=== PATIENT | female | born 1970 | race Caucasian/White ===

== ENCOUNTER 2017-09-21 12:32 | Emergency (ER) | payer OTHER ==
[~2017-09-21] VITALS: Ht 175.3 cm; Wt 81.7 kg
[2017-09-21] MEDS ORDERED: ALPRAZOLAM1 MG PO (12:55)
[2017-09-21] MEDS ORDERED: OXYCODONE HCL10 MG PO (12:55)
[2017-09-21] MEDS ORDERED: CYCLOBENZAPRINE10 MG PO (12:55)
[2017-09-21] MEDS ORDERED: MULTIVITAMINS1 EAC7 PO (12:56)
[2017-09-21] MEDS ORDERED: GABAPENTIN300 MG PO (12:56)
[2017-09-21] MEDS ORDERED: CLARITIN10 M2 PO (12:57)
== END 2017-09-21 14:09 | disposition home or self-care (01) ==
LOC: ED 12:32
DX: G43.909 Migraine, unspecified, not intractable, without status migrainosus (principal); Z90.710 Acquired absence of both cervix and uterus; Z88.2 Allergy status to sulfonamides; Z88.6 Allergy status to analgesic agent; Z88.5 Allergy status to narcotic agent; Z88.8 Allergy status to other drugs, medicaments and biological substances; Z79.899 Other long term (current) drug therapy
CPT/HCPCS: 96361; 96374; 96375; 99282; J1200; J1885; J2405; J2765; J7030

== ENCOUNTER 2018-11-01 12:54 | Emergency (ER) | payer OTHER ==
[~2018-11-01] VITALS: Ht 175.3 cm; Wt 81.7 kg
[~2018-11-01 12:54] MED LIST: ALPRAZOLAM1 MG PO; CLARITIN10 M2 PO; CYCLOBENZAPRINE10 MG PO; GABAPENTIN300 MG PO; MULTIVITAMINS1 EAC7 PO; OXYCODONE HCL10 MG PO
[2018-11-01] MEDS ORDERED: ZOFRAN4 MG PO (14:32)
== END 2018-11-01 14:50 | disposition home or self-care (01) ==
LOC: ED 12:54
DX: G43.909 Migraine, unspecified, not intractable, without status migrainosus (principal); F17.200 Nicotine dependence, unspecified, uncomplicated; Z90.710 Acquired absence of both cervix and uterus; Z88.2 Allergy status to sulfonamides; Z88.6 Allergy status to analgesic agent; Z88.5 Allergy status to narcotic agent; Z88.8 Allergy status to other drugs, medicaments and biological substances; Z79.899 Other long term (current) drug therapy
CPT/HCPCS: 80053; 85025; 96361; 96374; 96375; 99284-25; J1200; J1885; J2765; J7030

== ENCOUNTER 2019-04-06 15:19 | Emergency (ER) | payer OTHER ==
[~2019-04-06] VITALS: Ht 175.3 cm; Wt 71.7 kg
[~2019-04-06 15:19] MED LIST changes: +ZOFRAN4 MG PO
--- OUTSIDE RECORDS SUMMARY | 2019-04-06 15:20 | XMS ---
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 Jaqui VISIT COUNT (12 MO.) 2 JOSH Pablo TOTAL 2 NOTE: Visits indicate total known visits. ED/UCC VISIT TRACKING (12 MO.) 04/06/2019 15:19 [facility] [place] TYPE: Emergency COMPLAINT: - L ARM TINGLING 11/01/2018 12:54 [facility] [place] TYPE: Emergency COMPLAINT: - HEADACHE/VOMITING DIAGNOSES: - Headache - Allergy status to other drugs, medicaments and biological substances status - Acquired absence of both cervix and uterus - Other group home (current) drug therapy - Allergy status to sulfonamides status - Nicotine dependence, unspecified, uncomplicated - Migraine, unspecified, not intractable, without status migrainosus - Allergy status to analgesic agent status - Allergy status to narcotic agent status INPATIENT VISIT TRACKING (12 MO.) No inpatient visits to display in this time frame [id number]
== END 2019-04-06 17:49 | disposition home or self-care (01) ==
LOC: ED 15:19
DX: M62.838 Other muscle spasm (principal); R20.2 Paresthesia of skin; F17.200 Nicotine dependence, unspecified, uncomplicated; Z90.710 Acquired absence of both cervix and uterus; Z88.2 Allergy status to sulfonamides; Z88.6 Allergy status to analgesic agent; Z88.5 Allergy status to narcotic agent; Z88.8 Allergy status to other drugs, medicaments and biological substances
CPT/HCPCS: 99283

== ENCOUNTER 2020-06-18 16:44 | Emergency (ER) | payer MEDICARE, OTHER ==
[~2020-06-18] VITALS: Ht 172.7 cm; Wt 68.0 kg
[~2020-06-18 16:44] MED LIST changes: +SUMATRIPTAN-NA1 EACH PO
--- OUTSIDE RECORDS SUMMARY | 2020-06-18 16:48 | XMS ---
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 E.D. VISIT COUNT (12 MO.) 2 JOSH Pablo TOTAL 2 NOTE: Visits indicate total known visits. ED/UCC VISIT TRACKING (12 MO.) 06/18/2020 16:45 [facility] [place] TYPE: Emergency COMPLAINT: - ABSCESS 02/29/2020 08:31 James LEONARD [place] TYPE: Urgent Care DIAGNOSES: - Other chronic pain - Pain in right shoulder - Shoulder Pain - Neck Pain - Cervicalgia 12/24/2019 19:33 [facility] [place] TYPE: Emergency COMPLAINT: - SEIZURE,NECK PAIN DIAGNOSES: - Personal history of nicotine dependence - Unspecified convulsions - custodial (current) use of opiate analgesic - Allergy status to other drugs, medicaments and biological sub - Headache - Allergy status to narcotic agent status - Migraine, unspecified, not intractable, without status migrai - Allergy status to sulfonamides status - Unspecified convulsions - Other prison (current) drug therapy INPATIENT VISIT TRACKING (12 MO.) No inpatient visits to display in this time frame [id number]
[2020-06-18] MEDS ORDERED: FLUTICASONE PRO16 GM NAS (17:11)
[2020-06-18] MEDS ORDERED: LAMOTRIGINE25 MG PO (17:11)
[2020-06-18] MEDS ORDERED: DOXYCYCLINE HY100 MG PO (17:57)
== END 2020-06-18 18:14 | disposition home or self-care (01) ==
LOC: ED 16:44
DX: L02.01 Cutaneous abscess of face (principal); L72.3 Sebaceous cyst; F17.200 Nicotine dependence, unspecified, uncomplicated; G43.909 Migraine, unspecified, not intractable, without status migrainosus; Z88.2 Allergy status to sulfonamides; Z88.8 Allergy status to other drugs, medicaments and biological substances; Z79.899 Other long term (current) drug therapy
CPT/HCPCS: 10060; 90471; 90715; 99283-25

== ENCOUNTER 2023-04-25 19:37 | Emergency (ER) | payer OTHER, MEDICARE ==
[~2023-04-25] VITALS: Ht 172.7 cm; Wt 81.6 kg
--- OUTSIDE RECORDS SUMMARY | ~2023-04-25 | XMS | Continuity of Care Document ---
Demographics + + + | Address | [address] | | | [place] [address] | + + + | Preferred Language | Unknown | + + + | Marital Status | | + + + | Shinto Affiliation | Unknown | + + + | Race | White | + + + | Ethnic Group | Not or | + + + Author + + + | Author | [place] | + + + | Organization | [facility] | + + + | Address | [address] | | | [place] [address] | + + + | Phone | | + + + Care Team Providers + + + + | Care Plumbing Mechanic Name | Role | Phone | + + + + Unavailable | Unavailable | + + + + Unavailable | Unavailable | + + + + Unavailable | Unavailable | + + + + Unavailable | Unavailable | + + + + Allergies and Intolerances + + + + + | date | description | facility | type | + + + + + | (no date) | Acetaminophen | [facility] | (unknown) | | | | Hospital | | + + + + + | (no date) | Hydrocortisone | [facility] | (unknown) | | | | Hospital | | + + + + + | (no date) | Hydrocodone | [facility] | (unknown) | | | | Hospital | | + + + + + | (no date) | Acetaminophen | [facility] | (unknown) | | | | Hospital | | + + + + + | (no date) | Acetaminophen | [facility] | (unknown) | | | | Hospital | | + + + + + | (no date) | Hydrocodone | [facility] | (unknown) | | | | Hospital | | + + + + + | (no date) | Hydrocortisone | [facility] | (unknown) | | | | Hospital | | + + + + + | (no date) | Hydrocodone | [facility] | (unknown) | | | | Hospital | | + + + + + | (no date) | Hydrocortisone | [facility] | (unknown) | | | | Hospital | | + + + + + Encounters No information. Functional Status No information. Immunizations + + + + | date | description | facility | + + + + | 2022-05-12 00:00 | Td (Adult), Adsorbed | [facility] | + + + + | 2022-05-12 00:00 | Td (Adult), Adsorbed | [facility] | + + + + | 2020-06-18 00:00 | Tdap | [facility] | + + + + Medications + + + + | date | description | facility | + + + + | 2018-11-01 00:00 | ONDANSETRON HCL | [facility] | + + + + | 2021-02-01 00:00 | OxyCODONE 10/Acetamin 325 | [facility] | + + + + | 2021-02-01 00:00 | OxyCODONE 10/Acetamin 325 | [facility] | + + + + | 2022-02-25 00:00 | OXYCODONE HCL | [facility] | + + + + | 2022-04-27 00:00 | OXYCODONE HCL | [facility] | + + + + | 2022-05-25 00:00 | OXYCODONE HCL | [facility] | + + + + | 2022-06-27 00:00 | OXYCODONE HCL | [facility] | + + + + | 2022-07-28 00:00 | OXYCODONE HCL | [facility] | + + + + | 2022-09-23 00:00 | OXYCODONE HCL | [facility] | + + + + | 2023-04-07 00:00 | OXYCODONE HCL | [facility] | + + + + | 2023-04-07 00:00 | ALPRAZOLAM | [facility] | + + + + | 2023-04-07 00:00 | LAMOTRIGINE | [facility] | + + + + | 2023-04-07 00:00 | Pregabalin | [facility] | + + + + | 2022-05-12 00:00 | Amoxicillin/Clavulanate K | [facility] | + + + + | 2022-05-12 00:00 | Amoxicillin/Clavulanate K | [facility] | + + + + | 2023-04-07 00:00 | CYCLOBENZAPRINE HCL | [facility] | + + + + | 2022-02-25 00:00 | Cyclobenzaprine HCL | [facility] | + + + + | 2022-04-27 00:00 | Cyclobenzaprine HCL | [facility] | + + + + | 2022-05-25 00:00 | Cyclobenzaprine HCL | [facility] | + + + + | 2022-06-27 00:00 | Cyclobenzaprine HCL | [facility] | + + + + | 2022-07-28 00:00 | Cyclobenzaprine HCL | [facility] | + + + + | 2022-09-23 00:00 | Cyclobenzaprine HCL | [facility] | + + + + | 2023-04-07 00:00 | LORATADINE | [facility] | + + + + | 2023-04-07 00:00 | Sumatriptan Succ/Naproxen | [facility] | | | Sod | | + + + + Problems + + + + | date | description | facility | + + + + | 2017-09-21 00:00 | Migraine headache | [facility] | + + + + | 2019-04-06 00:00 | Muscle spasms of neck | [facility] | + + + + | 2019-04-06 00:00 | Tingling of skin | [facility] | + + + + | 2019-12-24 00:00 | New onset seizure | [facility] | + + + + | 2021-02-01 00:00 | Cervical radiculopathy | [facility] | + + + + | 2021-02-01 00:00 | Cervical radiculopathy | [facility] | + + + + | 2021-05-09 07:01:27 | Spinal instabilities, | [facility] | | | cervical region | [facility] | + + + + | 2021-05-09 07:01:27 | Arthrodesis status | [facility] | | | | [facility] | + + + + | 2022-05-12 00:00 | Infected dog bite of right | [facility] | | | index finger | | + + + + | 2022-05-12 00:00 | Infected dog bite of right | [facility] | | | index finger | | + + + + | 2023-04-07 00:00 | Acute bronchitis | [facility] | + + + + | 2023-04-07 22:07 | NICOTINE DEPENDENCE, | [facility] | | | UNSPECIFIED, UNCOMPLICATED | | + + + + | 2023-04-07 22:07 | ACUTE PHARYNGITIS, | [facility] | | | UNSPECIFIED | | + + + + | 2023-04-07 22:07 | ACUTE BRONCHITIS, | [facility] | | | UNSPECIFIED | | + + + + | 2023-04-07 22:07 | 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 Results/Labs +--------+--------+ + +---------+--------+ + | test | date | author | facility | value | unit | | | | | | | | | interpreta | | | | | | | | tion | +--------+--------+ + +---------+--------+ + + + | Result panel 1 | + + + + + + +---------+ + + | (unknown) | (no date) | (unknown) | [facility]no | (units | (unknown) | | | [facility] | value) | unknown) | | | | | [facility] | | | | + + + + +---------+ + + + + | Result panel 2 | + + + + + + + + + + | (unknown) | (no date) | (unknown) | (unknown) | DETECTED | (units | (unknown) | | | | | | | unknown) | | + + + + + + + + | (unknown) | (no date) | (unknown) | (unknown) | DETECTED | (units | (unknown) | | | | | | | unknown) | | + + + + + + + + | (unknown) | (no date) | (unknown) | (unknown) | DETECTED | (units | (unknown) | | | | | | | unknown) | | + + + + + + + + | (unknown) | (no date) | (unknown) | (unknown) | DETECTED | (units | (unknown) | | | | | | | unknown) | | + + + + + + + + | (unknown) | (no date) | (unknown) | (unknown) | Not | (units | (unknown) | | | | | | Detected | unknown) | | + + + + + + + + | (unknown) | (no date) | (unknown) | (unknown) | Not | (units | (unknown) | | | | | | Detected | unknown) | | + + + + + + + + | (unknown) | (no date) | (unknown) | (unknown) | Not | (units | (unknown) | | | | | | Detected | unknown) | | + + + + + + + + | (unknown) | (no date) | (unknown) | (unknown) | Not | (units | (unknown) | | | | | | Detected | unknown) | | + + + + + + + + | (unknown) | (no date) | (unknown) | (unknown) | Not | (units | (unknown) | | | | | | Detected | unknown) | | + + + + + + + + | (unknown) | (no date) | (unknown) | (unknown) | Not | (units | (unknown) | | | | | | Detected | unknown) | | + + + + + + + + | (unknown) | (no date) | (unknown) | (unknown) | Not | (units | (unknown) | | | | | | Detected | unknown) | | + + + + + + + + | (unknown) | (no date) | (unknown) | (unknown) | Not | (units | (unknown) | | | | | | Detected | unknown) | | + + + + + + + + | (unknown) | (no date) | (unknown) | (unknown) | Not | (units | (unknown) | | | | | | Detected | unknown) | | + + + + + + + + | (unknown) | (no date) | (unknown) | (unknown) | Not | (units | (unknown) | | | | | | Detected | unknown) | | + + + + + + + + | (unknown) | (no date) | (unknown) | (unknown) | Not | (units | (unknown) | | | | | | Detected | unknown) | | + + + + + + + + + + | Result panel 3 | + + + + + + + + + + | (unknown) | (no date) | (unknown) | (unknown) | DETECTED | (units | (unknown) | | | | | | | unknown) | | + + + + + + + + | (unknown) | (no date) | (unknown) | (unknown) | DETECTED | (units | (unknown) | | | | | | | unknown) | | + + + + + + + + | (unknown) | (no date) | (unknown) | (unknown) | DETECTED | (units | (unknown) | | | | | | | unknown) | | + + + + + + + + | (unknown) | (no date) | (unknown) | (unknown) | DETECTED | (units | (unknown) | | | | | | | unknown) | | + + + + + + + + | (unknown) | (no date) | (unknown) | (unknown) | DETECTED | (units | (unknown) | | | | | | | unknown) | | + + + + + + + + | (unknown) | (no date) | (unknown) | (unknown) | Not | (units | (unknown) | | | | | | Detected | unknown) | | + + + + + + + + | (unknown) | (no date) | (unknown) | (unknown) | Not | (units | (unknown) | | | | | | Detected | unknown) | | + + + + + + + + | (unknown) | (no date) | (unknown) | (unknown) | Not | (units | (unknown) | | | | | | Detected | unknown) | | + + + + + + + + | (unknown) | (no date) | (unknown) | (unknown) | Not | (units | (unknown) | | | | | | Detected | unknown) | | + + + + + + + + | (unknown) | (no date) | (unknown) | (unknown) | Not | (units | (unknown) | | | | | | Detected | unknown) | | + + + + + + + + | (unknown) | (no date) | (unknown) | (unknown) | Not | (units | (unknown) | | | | | | Detected | unknown) | | + + + + + + + + | (unknown) | (no date) | (unknown) | (unknown) | Not | (units | (unknown) | | | | | | Detected | unknown) | | + + + + + + + + | (unknown) | (no date) | (unknown) | (unknown) | Not | (units | (unknown) | | | | | | Detected | unknown) | | + + + + + + + + | (unknown) | (no date) | (unknown) | (unknown) | Not | (units | (unknown) | | | | | | Detected | unknown) | | + + + + + + + + | (unknown) | (no date) | (unknown) | (unknown) | Not | (units | (unknown) | | | | | | Detected | unknown) | | + + + + + + + + Social History No information. Vital Signs + + + +---------+ | date | measurement | value | units | + + + +---------+ | 2022-05-12 00:00 | BMI | 26.6 | kg/m2 | + + + +---------+ | 2022-05-12 00:00 | BP_diastolic | 112 | mmHg | + + + +---------+ | 2022-05-12 00:00 | BP_systolic | 183 | mmHg | + + + +---------+ | 2022-05-12 00:00 | heart_rate | 83 | /min | + + + +---------+ | 2022-05-12 00:00 | height_metric | 172.72 | cm | + + + +---------+ | 2022-05-12 00:00 | height_standard | 68 | in | + + + +---------+ | 2022-05-12 00:00 | o2_saturation | 97 | % | + + + +---------+ | 2022-05-12 00:00 | respiration_rate | 20 | /min | + + + +---------+ | 2022-05-12 00:00 | temperature_metric | 37.06 | C | | | | | | + + + +---------+ | 2022-05-12 00:00 | | 98.7 | F | | | temperature_standar | | | | | d | | | + + + +---------+ | 2022-05-12 00:00 | weight_metric | 79.38 | kg | + + + +---------+ | 2022-05-12 00:00 | weight_standard | 175 | lb | + + + +---------+ | 2023-04-07 00:00 | BMI | 26.5 | kg/m2 | + + + +---------+ | 2023-04-07 00:00 | BP_diastolic | 90 | mmHg | + + + +---------+ | 2023-04-07 00:00 | BP_systolic | 135 | mmHg | + + + +---------+ | 2023-04-07 00:00 | heart_rate | 73 | /min | + + + +---------+ | 2023-04-07 00:00 | height_metric | 172.72 | cm | + + + +---------+ | 2023-04-07 00:00 | height_standard | 68 | in | + + + +---------+ | 2023-04-07 00:00 | o2_saturation | 98 | % | + + + +---------+ | 2023-04-07 00:00 | respiration_rate | 16 | /min | + + + +---------+ | 2023-04-07 00:00 | temperature_metric | 36.61 | C | | | | | | + + + +---------+ | 2023-04-07 00:00 | | 97.9 | F | | | temperature_standar | | | | | d | | | + + + +---------+ | 2023-04-07 00:00 | weight_metric | 79 | kg | + + + +---------+ | 2023-04-07 00:00 | weight_standard | 174.16 | lb | + + + +---------+ | 2023-04-07 00:00 | weight_standard | 174.17 | lb | + + + +---------+"
--- OUTSIDE RECORDS SUMMARY | ~2023-04-25 | XMS | Continuity of Care Document ---
Demographics + + + | Address | [address] | | | [place] [address] | + + + | Preferred Language | Unknown | + + + | Marital Status | | + + + | Moravian Affiliation | Unknown | + + + | Race | White | + + + | Ethnic Group | Not or | + + + Author + + + | Author | [facility] | + + + | Organization | [facility] | + + + | Address | [address] | | | [place] [address] | + + + | Phone | | + + + Care Team Providers + + + + | Care 5Th Grade Teacher Name | Role | Phone | + [...] | (no date) | Acetaminophen | [facility] | (unknown) | | | | Hospital | | + + + + + | (no date) | Hydrocortisone | [facility] | (unknown) | | | | Hospital | | + + + + + | (no date) | Hydrocodone | [facility] | (unknown) | | | | Hospital | | + + + + + | (no date) | Acetaminophen | [facility] | (unknown) | | | | Hospital | | + + + + + | (no date) | Acetaminophen | [facility] | (unknown) | | | | Hospital | | + + + + + | (no date) | Hydrocodone | [facility] | (unknown) | | | | Hospital | | + + + + + | (no date) | Hydrocortisone | [facility] | (unknown) | | | | Hospital | | + + + + + | (no date) | Hydrocodone | [facility] | (unknown) | | | | Hospital | | + + + + + | (no date) | Hydrocortisone | [facility] | (unknown) | | | | Hospital [...] + | 2020-06-18 00:00 | Tdap | [facility] | + + + + Medications + + + + | date | description | facility | + + + + | 2018-11-01 00:00 | ONDANSETRON HCL | [facility] | + + + + | [...] | 2023-04-07 00:00 | OXYCODONE HCL | [facility] | + + + + | 2023-04-07 00:00 | ALPRAZOLAM | [facility] | + + + + | 2023-04-07 00:00 | LAMOTRIGINE | [facility] | + + + + | 2023-04-07 00:00 | Pregabalin | [facility] | + + + + | 2022-05-12 00:00 | Amoxicillin/Clavulanate K | [facility] | + + + + | 2022-05-12 00:00 | Amoxicillin/Clavulanate K | [facility] | + + + + | 2023-04-07 00:00 | CYCLOBENZAPRINE HCL | [facility] | + + + + | [...] + | 2023-04-07 00:00 | LORATADINE | [facility] | + + + + | 2023-04-07 00:00 | Sumatriptan Succ/Naproxen | [facility] | | | Sod | | + + + + Problems + + + + | date | description | facility | + + + + | 2017-09-21 00:00 | Migraine headache | [facility] | + + + + | 2019-04-06 00:00 | Muscle spasms of neck | [facility] | + + + + | 2019-04-06 00:00 | Tingling of skin | [facility] | + + + + | 2019-12-24 00:00 | New onset seizure | [facility] | + + + + | [...] | 2023-04-07 00:00 | Acute bronchitis | [facility] | + + + + | [...] + + | 2023-04-07 22:07 | 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
[~2023-04-25 19:37] MED LIST changes: +DOXYCYCLINE HY100 MG PO; +FLUTICASONE PRO16 GM NAS; +LAMOTRIGINE25 MG PO; +PREGABALIN150 MG PO
--- OUTSIDE RECORDS SUMMARY | 2023-04-25 19:41 | XMS ---
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 2 JOSH Pablo TOTAL 3 NOTE: Visits indicate total known visits. 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
[2023-04-25] MEDS ORDERED: AMOX TR-K CLV1 EAC1 PO (21:42)
[2023-04-25 23:28] VITALS: BP 127/88
== END 2023-04-25 22:00 | disposition home or self-care (01) ==
LOC: ED 19:37
DX: S51.852A Open bite of left forearm, initial encounter (principal); F17.200 Nicotine dependence, unspecified, uncomplicated; W54.0XXA Bitten by dog, initial encounter; Z88.2 Allergy status to sulfonamides; Z88.5 Allergy status to narcotic agent; Z88.8 Allergy status to other drugs, medicaments and biological substances; Z79.899 Other long term (current) drug therapy
CPT/HCPCS: 90715; 99283

== ENCOUNTER 2023-10-25 07:54 | Emergency (ER) | payer MEDICARE, MEDICAID ==
[~2023-10-25] VITALS: Ht 172.7 cm; Wt 68.9 kg
--- OUTSIDE RECORDS SUMMARY | ~2023-10-25 | XMS | Continuity of Care Document ---
Demographics + + + | Address | [address] | | | [place] [address] | + + + | Preferred Language | Unknown | + + + | Marital Status | | + + + | Confucianism Affiliation | Unknown | + + + | Race | White | + + + | Ethnic Group | Not or | + + + Author + + + | Author | [facility] | + + + | Organization | [facility] | + + + | Address | [address] | | | [place] [address] | + + + | Phone | | + + + Care Team Providers + + + + | Care Chief Executive Officer Name | Role | Phone | + + + + Unavailable | Unavailable | + + + + Unavailable | Unavailable | + + + + Allergies No information. Encounters No information. Functional Status No information. Immunizations No information. Medications + + + + | date | description | facility | + + + + | 2023-09-28 00:00 | ondansetron 4 MG | [place] - [facility] | | | Disintegrating Oral Tablet | [facility] | | | | [facility] | + + + + | 2023-09-28 00:00 | oxycodone hydrochloride 20 | [place] - [facility] | | | MG Oral Tablet | [facility] | | | | [facility] | + + + + | 2023-09-28 00:00 | cyclobenzaprine [facility] | | | hydrochloride 10 MG Oral | [facility] | | | Tablet | [facility] | + + + + | 2023-09-28 00:00 | naloxone hydrochloride 40 | [place] - [facility] | | | MG/ML Nasal Buhl | [facility] | | | | [facility] | + + + + | 2023-09-28 00:00 | sumatriptan 100 MG Oral | [place] - [facility] | | | Tablet | [facility] | | | | [facility] | + + + + | 2023-09-28 00:00 | fluticasone propionate | [place] [facility] | | | 0.05 MG/ACTUAT Metered Dose | [facility] | | | Nasal [place] | [facility] | + + + + | 2023-09-28 00:00 | Multiple Minerals-Vitamins | [facility] | | | tablet | [facility] | | | | [facility] | + + + + | 2023-09-28 00:00 | lamotrigine 25 MG Oral | [place] [facility] | | | Tablet | [facility] | | | | [facility] | + + + + | 2023-09-28 00:00 | lamotrigine 25 MG Oral | [facility] | | | Tablet | [facility] | | | | [facility] | + + + + | 2023-09-28 00:00 | ondansetron 4 MG | [facility] | | | Disintegrating Oral Tablet | [facility] | | | | [facility] | + + + + | 2023-09-28 00:00 | fluticasone propionate | [facility] | | | 0.05 MG/ACTUAT Metered Dose | [facility] | | | Nasal B[place] | [facility] | + + + + | 2023-09-28 00:00 | loratadine 10 MG Oral | [facility] - [facility] | | | Tablet | [facility] | | | | [facility] | + + + + | 2023-09-28 00:00 | loratadine 10 MG Oral | [facility] | | | Tablet | [facility] | | | | [facility] | + + + + | 2023-09-28 00:00 | sumatriptan 100 MG Oral | [facility] - [facility] | | | Tablet | [facility] | | | | [facility] | + + + + | 2023-09-28 00:00 | pregabalin 150 MG Oral | [place] - [facility] | | | Capsule | [facility] | | | | [facility] | + + + + | 2023-09-28 00:00 | pregabalin 150 MG Oral | [facility] - [facility] | | | Capsule | [facility] | | | | [facility] | + + + + | 2023-09-28 00:00 | oxycodone hydrochloride 20 | [facility] - [facility] | | | MG Oral Tablet | [facility] | | | | [facility] | + + + + | 2023-09-28 00:00 | naloxone hydrochloride 40 | [place] - [facility] | | | MG/ML Nasal B[place] | [facility] | | | | [facility] | + + + + | 2023-09-28 00:00 | cyclobenzaprine | [facility] - [facility] | | | hydrochloride 10 MG Oral | [facility] | | | Tablet | [facility] | + + + + Problems + + + + | date | description | facility | + + + + | 2023-08-28 12:15 | ENCNTR SCREEN MAMMOGRAM | [facility] | | | FOR MALIGNANT NE | | + + + + | 2023-08-28 12:15 | ENCNTR SCREEN MAMMOGRAM | [facility] | | | FOR MALIGNANT NEOPLASM OF | | | | BREAST | | + + + + | 2023-08-28 12:15 | ENCNTR SCREEN MAMMOGRAM | [facility] | | | FOR MALIGNANT NEOPLASM OF | | + + + + | 2023-08-28 12:30 | ENCNTR SCREEN MAMMOGRAM | [facility] | | | FOR MALIGNANT NE | | + + + + | 2023-08-29 00:00 | Mammography abnormal | [place] - [facility] | | | | [facility] | | | | [facility] | + + + + | 2023-08-30 13:06 | OTH ABN AND INCONCLUSIVE | [facility] | | | FINDINGS ON DX | | + + + + | 2023-09-05 10:37 | OTH ABN AND INCONCLUSIVE | [facility] | | | FINDINGS ON DX | | + + + + | 2023-09-05 10:45 | OTH ABN AND INCONCLUSIVE | [facility] | | | FINDINGS ON DX | | + + + + | 2023-09-06 13:20 | 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 | | + + + + | 2023-09-06 13:20 | DIFFUSE CYSTIC MASTOPATHY | [facility] | | | OF LEFT BREAST | | + + + + | 2023-09-06 13:20 | OTH ABN AND INCONCLUSIVE | [facility] | | | FINDINGS ON DX IMAGING OF | | | | BREAST | | + + + + | 2023-09-06 13:20 | OTH ABN AND INCONCLUSIVE | [facility] | | | FINDINGS ON DX IMAGING OF | | + + + + | 2023-09-06 13:20 | OTH ABN AND INCONCLUSIVE | [facility] | | | FINDINGS ON DX | | + + + + | 2023-09-06 13:45 | OTH ABN AND INCONCLUSIVE | [facility] | | | FINDINGS ON DX | | + + + + Procedures No information. Results/Labs No information. Social History + + + + | date | description | facility | + + + + | 2023-09-28 00:00 | Former Smoker | [place] [facility] | | | | [facility] | | | | [facility] | + + + + Vital Signs + + + +---------+ | date | measurement | value | units | + + + +---------+ | 2023-09-26 00:00 | BMI | 25.9 | kg/m2 | + + + +---------+ | 2023-09-26 00:00 | BP_diastolic | 96 | mmHg | + + + +---------+ | 2023-09-26 00:00 | BP_systolic | 150 | mmHg | + + + +---------+ | 2023-09-26 00:00 | height_metric | 172.72 | cm | + + + +---------+ | 2023-09-26 00:00 | height_standard | 68 | in | + + + +---------+ | 2023-09-26 00:00 | weight_metric | 2723 | oz_av | + + + +---------+ | 2023-09-26 00:00 | weight_standard | 2723 | oz_av | + + + +---------+"
[~2023-10-25 07:54] MED LIST changes: +AMOX TR-K CLV1 EAC1 PO
[2023-10-25 08:25] LABS: BILIRUBIN, URINE POSITIVE (negative); BLOOD/HGB, URINE TRACE-I (Negative); KETONE, URINE >=80 (Negative); LEUK ESTERASE, URINE NEGATIVE (negative); NITRITE, URINE NEGATIVE (negative); PH, URINE 5.5 (5-7)
[2023-10-25 08:33] LABS: BACTERIA, URINE NONE SEEN /hpf (negative); CRYSTALS, URINE NONE SEEN (0-1+); EPITHELIAL CELLS, URINE SQUAMOUS 1+ /lpf (0-1+); RED BLOOD CELLS, URINE 0-1 /hpf (0-5)
[2023-10-25 08:34] LABS: CASTS, URINE GRANULAR 1+ \\lpf; COLLECTION TYPE, URINE CLEAN CATCH; REFLEX CULTURE, URINE No (No)
[2023-10-25 09:01] LABS: INFLUENZA B NAA NEGATIVE (NEGATIVE); RESPIRATORY SYNCYTIAL VIR NAA NEGATIVE (NEGATIVE)
[2023-10-25 09:07] LABS: BASOPHILS 0.3 % (0-2); EOSINOPHILS 0.6 % (0-6); HEMATOCRIT 39.8 % (35.0-50.0); HEMOGLOBIN 13.6 g/dL (12.0-18.0); LYMPHOCYTES 16.9 % (24-44); MCH 30.8 (27-36); MCHC 34.2 g/dl (30-36); MCV 90.1 fl (81-99); MONOCYTES 5.9 % (0-12); NEUTROPHILS 76.3 % (39-80); PLATELET COUNT 226 K/uL (140-440); RBC 4.42 M/ul (4.3-5.7); RDW 12.9 (10.5-15.0)
[2023-10-25 09:21] LABS: ALBUMIN 4.1 g/dL (3.4-5.0); ALBUMIN/GLOBULIN RATIO 1.28 (1.1-2.4); ANION GAP 22.9 (7-21); BILIRUBIN, TOTAL 0.8 ng/dL (0.2-1.0); BUN/CREATININE RATIO 7.95 (6.0-28.6); CALCIUM 10.1 mg/dL (8.5-10.1); CREATININE, SERUM 0.88 mg/dL (0.55-1.02); POTASSIUM 3.9 mmol/L (3.5-5.1); PROTEIN, TOTAL 7.3 g/dL (6.4-8.2)
[2023-10-25 10:37] VITALS: BP 129/94
== END 2023-10-25 10:38 | disposition home or self-care (01) ==
LOC: ED 07:54
PROVIDERS: Emergency Medicine
DX: B34.9 Viral infection, unspecified (principal); E86.0 Dehydration; F17.200 Nicotine dependence, unspecified, uncomplicated; Z88.2 Allergy status to sulfonamides; Z88.5 Allergy status to narcotic agent; Z88.8 Allergy status to other drugs, medicaments and biological substances; Z79.899 Other long term (current) drug therapy; Z11.52 Encounter for screening for COVID-19
CPT/HCPCS: 36415; 80053; 81001; 85025; 87502; 96360; 96361; 99284-25; C9803; J7030; U0002